=== PATIENT | male | born 1955 | race Caucasian/White ===

== ENCOUNTER 2020-09-04 08:11 | Day surgery (SDC) | payer MEDICARE, BC ==
[2020-09-02 08:39] VITALS: BMI 30.6
[~2020-09-04 08:11] MED LIST: LACTATED RINGERS 1,000 ML IV SCH
[2020-09-04] MEDS ORDERED: LIDOCAINE 1% (10MG/ML) FOR IV START INTRADERMA ONE (08:45)
[2020-09-04] MEDS ORDERED: LACTATED RINGERS 1,000 ML IV ONE (08:45)
[2020-09-04 08:47] VITALS: TEMP 98.2
[2020-09-04] MEDS ORDERED: PROPOFOL 10 MG/ML 20 ML VIAL IV ONE (09:24)
--- NOTE | 2020-09-04 09:27 | P.GSHP ---
History of Present Illness H&P Date: 09/04/20 Chief Complaint: Screening colonoscopy Is a 65-year-old male who presents today for screening colonoscopy. Patient denies any significant GI complaints. Past Medical History Past Medical History: Osteoarthritis (OA) Additional Past Medical History / Comment(s): hx. colon polyps History of Any Multi-Drug Resistant Organisms: None Reported Past Surgical History: Hernia Repair Additional Past Surgical History / Comment(s): colonoscopies, surg. for facial fx near right orbit Past Anesthesia/Blood Transfusion Reactions: No Reported Reaction Smoking Status: Current every day smoker Medications and Allergies Home Medications Medication Instructions Recorded Confirmed Type Ibuprofen 200 - 400 mg PO Q6H PRN 09/02/20 09/02/20 History Allergies Allergy/AdvReac Type Severity Reaction Status Date / Time amoxicillin Allergy Rash/Hives Verified 09/02/20 08:28 Surgical - Exam Vital Signs Temp Pulse Resp BP Pulse Ox 98.2 F 88 16 156/86 95 09/04/20 08:36 09/04/20 08:36 09/04/20 08:36 09/04/20 08:36 09/04/20 08:36 - General well developed, well nourished, no distress - Eyes PERRL - ENT normal pinna - Neck no masses - Respiratory normal expansion - Cardiovascular Rhythm: regular - Abdomen Abdomen: soft, non tender Assessment and Plan Assessment: We'll perform screening colonoscopy
--- NOTE | 2020-09-04 09:44 | P.OP ---
Date of Procedure: 09/04/20 Preoperative Diagnosis: Screening colonoscopy Postoperative Diagnosis: Mild diverticulosis Procedure(s) Performed: Colonoscopy Anesthesia: MAC Surgeon: Navneet Wyatt Pathology: none sent Condition: stable Disposition: PACU Description of Procedure: Patient's placed on the endoscopy table lateral position. He received IV sedation. Digital rectal exam was performed which revealed no abnormalities. The possible colonoscope was then placed patient anus and passed throughout the entire colon. The ileocecal valve was visualized. The cecum, ascending transverse, appeared normal. In the descending; was mild diverticular changes. The scope was then brought back the rectum this appeared normal. Scope withdrawn for patient.
[2020-09-04 10:04] VITALS: PULSE 74
[2020-09-04 10:05] VITALS: BP 141/85; RESP 16
== END 2020-09-04 10:40 | disposition home or self-care (01) ==
LOC: ORWHC2ENDO 08:11
PROVIDERS: ATTEND Surgery
DX: Z12.11 Encounter for screening for malignant neoplasm of colon (principal); K57.30 Diverticulosis of large intestine without perforation or abscess without bleeding; Z86.010 Personal history of colon polyps; F17.200 Nicotine dependence, unspecified, uncomplicated; Z88.0 Allergy status to penicillin; M19.90 Unspecified osteoarthritis, unspecified site
CPT/HCPCS: J2704; G0105; 45378

== ENCOUNTER → 2022-12-16 | Outpatient (CLI) | payer MEDICARE, BC ==
[2022-12-16 16:11] LABS: ALT 22 U/L (10-49); AST 16 U/L (14-35); Chol/HDL Ratio 2.79 Ratio; LDL Cholesterol,Calculated 64.3 mg/dL (0.0-131.0); VLDL Calculation 12.04 mg/dL (5.00-40.00)
== END | disposition home or self-care (01) ==
LOC: LABWHC1 08:09
PROVIDERS: ATTEND Internal Medicine Interventional Cardiology
DX: E78.2 Mixed hyperlipidemia (principal)
CPT/HCPCS: 36415; 80061; 84450; 84460

== ENCOUNTER → 2023-06-30 | Outpatient (CLI) | payer MEDICARE, BC ==
[2023-06-30 11:20] LABS: ALT 24 U/L (10-49); AST 15 U/L (14-35); Albumin 4.6 g/dL (3.8-4.9); Albumin/Globulin Ratio 2.71 Ratio (1.60-3.17); Alkaline Phosphatase 159 U/L (41-126); Blood Urea Nitrogen 13.5 mg/dL (9.0-27.0); Calcium 11.2 mg/dL (8.7-10.3); Chloride 105 mmol/L (96-109); Chol/HDL Ratio 2.91 Ratio; Globulin 1.7 g/dL (1.6-3.3); Glucose 119 mg/dL (70-110); LDL Cholesterol,Calculated 65.8 mg/dL (0.0-131.0); Potassium 5.1 mmol/L (3.5-5.5); Sodium 140 mmol/L (135-145); Total Bilirubin <0.2 mg/dL (0.3-1.2); Total Protein 6.3 g/dL (6.2-8.2); VLDL Calculation 16.22 mg/dL (5.00-40.00)
== END | disposition home or self-care (01) ==
LOC: LABWHC1 07:18
PROVIDERS: ATTEND Internal Medicine Interventional Cardiology
DX: E78.2 Mixed hyperlipidemia (principal)
CPT/HCPCS: 36415; 80053; 80061

== ENCOUNTER 2023-10-16 18:02 | Observation (INO) | payer MEDICARE, BC ==
--- NOTE | 2023-10-16 18:18 | ED ---
General Adult HPI - General Chief complaint: Syncope Stated complaint: Syncope Time Seen by Provider: 10/16/23 18:03 Source: patient, family Mode of arrival: EMS Limitations: no limitations - History of Present Illness Initial comments: Patient presents to the ED by ambulance for evaluation with his and grandson at bedside. Patient states that he just came in after having a cigarette and had a drink of water when he suddenly became "dizzy". Patient then reportedly sustained a syncopal episode. Patient's grandson states that he witnessed the entire episode, and he states that he saw the patient pass out and fall to his right side, then landed on the ground. Grandson states that the patient hit the right side of his head on the wall before falling. Patient's grandson states that the patient's LOC lasted for about 10 seconds before he sp ontaneously regained consciousness. Patient states that he otherwise has felt fine today, and he states that he feels fine currently. Patient denies feeling dizzy or having any symptoms at all currently. Patient denies having any pain, fever or chills, recent illness, headache, focal numbness/weakness/neurodeficit, visual changes, speech difficulty, neck/back/extremity pain, chest pain, dyspnea , cough or cold symptoms, palpitations, abdominal pain, nausea/vomiting/diarrhea, bloody or melanotic stool, dysuria or urinary symptoms, or any other symptoms or complaints. Patient states that he last ate about 20 minutes prior to his syncopal episode today. - Related Data Home Medications Medication Instructions Recorded Confirmed Ibuprofen 400 mg PO BID 09/02/20 10/16/23 Acetaminophen Tab [Tylenol Tab] 1,000 mg PO BID 10/16/23 10/16/23 Aspirin EC [Ecotrin Low Dose] 81 mg PO DAILY 10/16/23 10/16/23 Atorvastatin [Lipitor] 40 mg PO HS 10/16/23 10/16/23 Fluticasone/Umeclidin/Vilanter 1 puff INHALATION RT-DAILY 10/16/23 10/16/23 [Trelestephy Ellipta 100-62.5-25] Allergies Allergy/AdvReac Type Severity Reaction Status Date / Time amoxicillin Allergy Rash/Hives Verified 10/16/23 18:42 Review of Systems ROS Statement: Those systems with pertinent positive or pertinent negative responses have been documented in the HPI. ROS Other: All systems not noted in ROS Statement are negative. Past Medical History Past Medical History: COPD, Osteoarthritis (OA) Additional Past Medical History / Comment(s): hx. colon polyps History of Any Multi-Drug Resistant Organisms: None Reported Past Surgical History: Hernia Repair Additional Past Surgical History / Comment(s): colonoscopies, surg. for facial fx near right orbit Past Anesthesia/Blood Transfusion Reactions: No Reported Reaction Smoking Status: Current every day smoker Past Alcohol Use History: None Reported Past Drug Use History: None Reported General Exam Limitations: no limitations General appearance: alert, in no apparent distress Head exam: Present: atraumatic, normocephalic Eye exam: Present: normal appearance, PERRL, EOMI ENT exam: Present: mucous membranes moist Neck exam: Present: normal inspection, full ROM, other (Trachea is in midline). Absent: tenderness Respiratory exam: Present: normal lung sounds bilaterally. Absent: respiratory distress, wheezes, rales, rhonchi, stridor Cardiovascular Exam: Present: regular rate, normal rhythm, normal heart sounds, other (Normal radial pulses bilaterally) GI/Abdominal exam: Present: soft. Absent: distended, tenderness, guarding Extremities exam: Present: full ROM. Absent: tenderness, pedal edema, calf tenderness Back exam: Present: normal inspection. Absent: tenderness Neurological exam: Present: alert, oriented X3, CN II-XII intact. Absent: motor sensory deficit Psychiatric exam: Present: normal affect Skin exam: Present: warm, dry, intact, normal color Course Vital Signs 10/16/23 18:04 Temperature 97.7 F Pulse Rate 92 Respiratory 18 Rate Blood Pressure 148/82 O2 Sat by Pulse 94 L Oximetry - Reevaluation(s) Reevaluation #1: 10/16/23 20:19 Patient denies development of any new symptoms while in the ED. Patient continues to state that he is asymptomatic. Patient remains alert and breathing comfortably. Patient and family are aware of the patient's test results. Given the patient's syncopal episode today and history of cardiac disease, patient agrees with hospital admission for cardiac monitoring and further evaluation. 10/16/23 20:44 Case, H&P and test results were discussed with Dr. Hughes. She accepts hospital admission. She has no further recommendations at this time. EKG Findings - EKG Comments: EKG Findings:: ED physician interpretation (interpreted by me): Normal sinus rhythm, right bundle branch block, ventricular rate of 85 bpm, normal [place] interval, QRS duration of 148 ms, normal QT interval, LVH, leftward axis, no ST elevation Medical Decision Making - Medical Decision Making Was pt. sent in by a medical professional or institution (, HALI, PAIRER INSPECTOR, urgent care, hospital, or group home...) When possible be specific @ -No Did you speak to anyone other than the patient for history (EMS, parent, family, police, friend...)? What history was obtained from this source @ -History was also provided by the patient's grandson. Did you review nursing and triage notes (agree or disagree)? Why? @ -I reviewed and agree with nursing and triage notes Were old charts reviewed (outside hosp., previous admission, EMS record, old EKG, old radiological studies, urgent care reports/EKG's, group home records)? Report findings @ -No old charts were reviewed Differential Diagnosis (chest pain, altered mental status, abdominal pain women, abdominal pain men, vaginal bleeding, weakness, fever, dyspnea, syncope, headache, dizziness, GI bleed, back pain, seizure, CVA, palpatations, mental health, musculoskeletal)? @ -Differential Syncope: Valvular disease, hypertrophic cardiomyopathy, tamponade, tachycardia, bradycardia, [place], hypovolemia, hemorrhage, anemia, seizure, hypoglycemia, dysrhythmia, this is not meant to be an all-inclusive list. EKG interpreted by me (3pts min.). @ -As above X-rays interpreted by me (1pt min.). @ -Chest x-ray was reviewed myself and shows no acute abnormality. I agree with the radiologist's interpretation as above. CT interpreted by me (1pt min.). @ -None done U/S interpreted by me (1pt. min.). @ -None done What testing was considered but not performed or refused? (CT, X-rays, U/S, labs)? Why? @ -None What meds were considered but not given or refused? Why? @ -None Did you discuss the management of the patient with other professionals (professionals i.e. , HALI, PAIRER INSPECTOR, lab, RT, psych nurse, social media editor, customs and border protection inspector, teacher, chief strategy officer, outsole caser)? Give summary @ -As above. Was smoking cessation discussed for >3mins.? @ -No Was critical care preformed (if so, how long)? @ -No Were there social determinants of health that impacted care today? How? (Homelessness, low income, unemployed, alcoholism, drug addiction, transportation, low edu. Level, literacy, decrease access to med. care, detention, rehab)? @ -No Was there de-escalation of care discussed even if they declined (Discuss DNR or withdrawal of care, Hospice)? DNR status @ -No What co-morbidities impacted this encounter? (DM, HTN, Smoking, COPD, CAD, Cancer, CVA, ARF, Chemo, Hep., AIDS, mental health diagnosis, sleep apnea, morbi d obesity)? @ -None Was patient admitted / discharged? Hospital course, mention meds given and rout e, prescriptions, significant lab abnormalities, going to OR and other pertinent info. @ -Patient reports having a history of some sort of cardiac disease, but he is unable to tell me anything more specific than that. Patient remains in a sinus rhythm on the compliance monitor. Given the patient's syncopal episode and history of cardiac disease, will admit the patient to the hospital for cardiac m onitoring and further evaluation. Patient's troponin within normal limits. The rest of the patient's labs are fairly unremarkable. Dr. Hughes has accepted hospital admission. Patient and family feel comfortable with this plan. Undiagnosed new problem with uncertain prognosis? @ -No Drug Therapy requiring intensive monitoring for toxicity (Heparin, Nitro, Insulin, Cardizem)? @ -No Were any procedures done? @ -No Diagnosis/symptom? @ -Syncope Acute, or Chronic, or Acute on Chronic? @ -Acute Uncomplicated (without systemic symptoms) or Complicated (systemic symptoms)? @ -Default Side effects of treatment? @ -No Exacerbation, Progression, or Severe Exacerbation? @ -No Poses a threat to life or bodily function? How? (Chest pain, [place], NJ, pneumonia, PE, COPD, DKA, ARF, appy, cholecystitis, CVA, Diverticulitis, Homicidal, Suicidal, threat to staff... and all critical care pts) @ -No - Lab Data Result diagrams: 10/16/23 18:37 10/16/23 18:37 Lab Results 10/16/23 10/16/23 10/16/23 Range/Units 18:37 18:37 18:37 WBC 7.6 (3.8-10.6) k/uL RBC 4.11 L (4.30-5.90) m/uL Hgb 14.4 (13.0-17.5) gm/dL Hct 44.5 (39.0-53.0) % MCV 108.3 H (80.0-100.0) fL MCH 35.1 H (25.0-35.0) pg MCHC 32.5 (31.0-37.0) g/dL RDW 14.5 (11.5-15.5) % Plt Count 272 (150-450) k/uL MPV 8.4 Neutrophils % 69 % Lymphocytes % 21 % Monocytes % 6 % Eosinophils % 2 % Basophils % 1 % Neutrophils # 5.2 (1.3-7.7) k/uL Lymphocytes # 1.6 (1.0-4.8) k/uL Monocytes # 0.4 (0-1.0) k/uL Eosinophils # 0.2 (0-0.7) k/uL Basophils # 0.0 (0-0.2) k/uL Manual Slide Review Performed Macrocytosis Marked A Ovalocytes PT 10.2 (10.0-12.5) sec INR 0.9 (<1.2) APTT 25.1 (22.0-30.0) sec Sodium 142 (137-145) mmol/L Potassium 4.5 (3.5-5.1) mmol/L Chloride 112 H (98-107) mmol/L Carbon Dioxide 23 (22-30) mmol/L Anion Gap 7 mmol/L BUN 12 (9-20) mg/dL Creatinine 0.72 (0.66-1.25) mg/dL Est GFR (CKD-EPI)AfAm >90 (>60 ml/min/1.73 sqM) Est GFR (CKD-EPI)NonAf >90 (>60 ml/min/1.73 sqM) Glucose 148 H (74-99) mg/dL Calcium 9.8 (8.4-10.2) mg/dL Magnesium 2.0 (1.6-2.3) mg/dL Total Bilirubin 0.5 (0.2-1.3) mg/dL AST 22 (17-59) U/L ALT 19 (4-49) U/L Alkaline Phosphatase 126 (38-126) U/L Troponin I (0.000-0.034) ng/mL Total Protein 5.7 L (6.3-8.2) g/dL Albumin 3.6 (3.5-5.0) g/dL 10/16/23 Range/Units 18:37 WBC (3.8-10.6) k/uL RBC (4.30-5.90) m/uL Hgb (13.0-17.5) gm/dL Hct (39.0-53.0) % MCV (80.0-100.0) fL MCH (25.0-35.0) pg MCHC (31.0-37.0) g/dL RDW (11.5-15.5) % Plt Count (150-450) k/uL MPV Neutrophils % % Lymphocytes % % Monocytes % % Eosinophils % % Basophils % % Neutrophils # (1.3-7.7) k/uL Lymphocytes # (1.0-4.8) k/uL Monocytes # (0-1.0) k/uL Eosinophils # (0-0.7) k/uL Basophils # (0-0.2) k/uL Manual Slide Review Macrocytosis Ovalocytes PT (10.0-12.5) sec INR (<1.2) APTT (22.0-30.0) sec Sodium (137-145) mmol/L Potassium (3.5-5.1) mmol/L Chloride (98-107) mmol/L Carbon Dioxide (22-30) mmol/L Anion Gap mmol/L BUN (9-20) mg/dL Creatinine (0.66-1.25) mg/dL Est GFR (CKD-EPI)AfAm (>60 ml/min/1.73 sqM) Est GFR (CKD-EPI)NonAf (>60 ml/min/1.73 sqM) Glucose (74-99) mg/dL Calcium (8.4-10.2) mg/dL Magnesium (1.6-2.3) mg/dL Total Bilirubin (0.2-1.3) mg/dL AST (17-59) U/L ALT (4-49) U/L Alkaline Phosphatase (38-126) U/L Troponin I <0.012 (0.000-0.034) ng/mL Total Protein (6.3-8.2) g/dL Albumin (3.5-5.0) g/dL - Radiology Data Chest x-ray: No acute pulmonary process. Disposition Clinical Impression: Syncope Disposition: ADMITTED IP TO THIS HOSP Condition: Stable Is patient prescribed a controlled substance at d/c from ED?: No Referrals: Sidney Doran MD [Primary Care Provider] - 1-2 days Time of Disposition: 20:44
[2023-10-16] MEDS: SODIUM CHLORIDE 0.9% 500 ML 500 ML IV STA (18:36)
[2023-10-16 18:52] LABS: Basophils % (A) 1 %; Eosinophils # (A) 0.2 k/uL (0-0.7); Eosinophils % (A) 2 %; HCT 44.5 % (39.0-53.0); HGB 14.4 gm/dL (13.0-17.5); Lymphocytes # (A) 1.6 k/uL (1.0-4.8); Lymphocytes % (A) 21 %; MCH 35.1 pg (25.0-35.0); MCHC 32.5 g/dL (31.0-37.0); MCV 108.3 fL (80.0-100.0); Macrocytosis Marked; Mean Platelet Volume 8.4; Monocytes # (A) 0.4 k/uL (0-1.0); Monocytes % (A) 6 %; Neutrophils # (A) 5.2 k/uL (1.3-7.7); Neutrophils % (A) 69 %; Platelet Count 272 k/uL (150-450); RBC 4.11 m/uL (4.30-5.90); RDW 14.5 % (11.5-15.5); WBC 7.6 k/uL (3.8-10.6)
[2023-10-16 19:03] LABS: ALT 19 U/L (4-49); AST 22 U/L (17-59); African American GFR (CKD) >90 (>60 ml/min/1.73 sqM); Albumin 3.6 g/dL (3.5-5.0); Alkaline Phosphatase 126 U/L (38-126); Anion Gap 7 mmol/L; Blood Urea Nitrogen 12 mg/dL (9-20); Calcium 9.8 mg/dL (8.4-10.2); Carbon Dioxide 23 mmol/L (22-30); Chloride 112 mmol/L (98-107); Glucose 148 mg/dL (74-99); Non-African American GFR(CKD) >90 (>60 ml/min/1.73 sqM); Potassium 4.5 mmol/L (3.5-5.1); Sodium 142 mmol/L (137-145); Total Bilirubin 0.5 mg/dL (0.2-1.3); Total Protein 5.7 g/dL (6.3-8.2)
[2023-10-16 19:05] LABS: INR 0.9 (<1.2); Partial Thromboplastin Time 25.1 sec (22.0-30.0); Prothrombin Time 10.2 sec (10.0-12.5)
--- NOTE | 2023-10-16 19:16 | XR ---
EXAMINATION TYPE: XR chest 2V DATE OF EXAM: 10/16/2023 COMPARISON: None INDICATION: Syncope TECHNIQUE: Frontal and lateral views of the chest are obtained. FINDINGS: The heart size is normal. The pulmonary vasculature is normal. The lungs are clear. IMPRESSION: 1. No acute pulmonary process.
[2023-10-16] MEDS ORDERED: NALOXONE 0.4 MG/ML 1 ML VIAL IV PRN (20:45)
[2023-10-17 08:52] LABS: HCT 45.5 % (39.6-50.0); MCH 35.3 pg (27.0-32.0); MCV 107.1 FL (80.0-97.0); Mean Platelet Volume 10.4 FL (9.5-12.2); NRBC Per 100 WBC 0 X 10*3/uL (0.00-0.01); Platelet Count 249 X 10*3/uL (140-440); RBC 4.25 X 10*6/uL (4.40-5.60); RDW 15.1 % (11.5-14.5)
[2023-10-17 08:56] LABS: ALT 17 U/L (10-49); AST 18 U/L (14-35); Albumin 4.1 g/dL (3.8-4.9); Albumin/Globulin Ratio 2.93 Ratio (1.60-3.17); Alkaline Phosphatase 129 U/L (41-126); Calcium 10.3 mg/dL (8.7-10.3); Carbon Dioxide 24.8 mmol/L (21.6-31.8); Chloride 111 mmol/L (96-109); Globulin 1.4 g/dL (1.6-3.3); Glucose 104 mg/dL (70-110); Sodium 143 mmol/L (135-145); Total Bilirubin 0.4 mg/dL (0.3-1.2); Total Protein 5.5 g/dL (6.2-8.2)
[2023-10-17 11:14] LABS: Basophils # (A) 0.04 X 10*3/uL (0.00-0.10); Basophils % (A) 0.5 %; Eosinophils # (A) 0.14 X 10*3/uL (0.04-0.35); Eosinophils % (A) 1.9 %; Lymphocytes # (A) 1.43 X 10*3/uL (0.90-5.00); Lymphocytes % (A) 19.6 %; Macrocytosis (M) 2+; Monocytes # (A) 0.52 X 10*3/uL (0.20-1.00); Monocytes % (A) 7.1 %; Neutrophils # (A) 5.12 X 10*3/uL (1.80-7.70); Neutrophils % (A) 70.2 %
[2023-10-17] MEDS: ASPIRIN 81 MG PO SCH (16:42)
--- NOTE | 2023-10-17 16:59 | CT ---
EXAMINATION TYPE: CT brain wo con CT DLP: 1138.07 mGycm, Automated exposure control for dose reduction was used. DATE OF EXAM: 10/17/2023 4:39 PM COMPARISON: None. CLINICAL INDICATION:Male, 68 years old with history of syncope, syncope TECHNIQUE: Brain: Axial CT images of the brain were obtained with coronal and sagittal reformats created and rev iewed. Contrast used: None. Oral contrast used: None. FINDINGS: Brain: Extra-axial spaces: No abnormal extra-axial fluid collections. Ventricular system: Within normal limits Cerebral parenchyma: No acute intraparenchymal hemorrhage or mass effect. The mccabe-white junction is well differentiated. Cerebellum: Unremarkable. Mass effect: No evidence of midline shift. Intracranial vasculature: Atherosclerotic calcifications of the intracranial vessels. Soft tissues: Normal. Calvarium/osseous structures: No depressed skull fracture.. I'll disease with remote right maxillary injury. Paranasal sinuses and mastoid air cells: Mild scattered paranasal sinus disease. Visualized orbits: Orbital contents are intact. IMPRESSION: No acute intracranial process.
[2023-10-17 18:47] LABS: Appearance,Urine Clear (Clear); Bilirubin,Urine Negative (Negative); Blood,Urine Negative (Negative); Color,Urine Colorless; Glucose,Urine (UA) Negative (Negative); Ketones,Urine Negative (Negative); Leukocyte Esterase,Urine Negative (Negative); Nitrite,Urine Negative (Negative); PH, Urine 7.5 (5.0-8.0); Protein,Urine Negative (Negative); Urobilinogen,Urine <2.0 mg/dL (<2.0)
--- NOTE | 2023-10-17 20:47 | US ---
EXAMINATION TYPE: US carotid duplex BILAT DATE OF EXAM: 10/17/2023 COMPARISON: NONE CLINICAL INDICATION: Male, 68 years old with history of stroke; stroke TECHNIQUE: Carotid duplex ultrasound examination. Indirect Doppler criteria was utilized. FINDINGS: EXAM MEASUREMENTS: RIGHT: Peak Systolic Velocity (PSV) cm/sec ----- Right CCA: 66.5 ----- Right ICA: 65.8 ----- Right ECA: 107 ICA/CCA ratio: 0.99 RIGHT: End Diastole cm/sec ----- Right CCA: 26.1 ----- Right ICA: 27.7 ----- Right ECA: 23.1 LEFT: Peak Systolic Velocity (PSV) cm/sec ----- Left CCA: 80.8 ----- Left ICA: 134 ----- Left ECA: 92.1 ICA/CCA ratio: 1.6 LEFT: End Diastole cm/sec ----- Left CCA: 20.8 ----- Left ICA: 49.3 ----- Left ECA: 12.5 VERTEBRALS (direction of flow): Right Vertebral: Antegrade Left Vertebral: Antegrade Rhythm: Normal ROOFER GYPSUM NOTES: Plaque seen in bilateral bulbs. Left prox ICA velocity is slightly elevated. IMPRESSION: 1. 50-69% stenosis of the left carotid bifurcation by peak systolic velocity. 2. Less than 50% stenosis of the right carotid bifurcations. Criteria for Assigning % of Stenosis / Diameter reduction (Estimation based on the indirect measurements of the internal carotid artery velocities (ICA PSV). 1. Normal (no stenosis)=ICA PSV < 125 cm/s: ratio < 2.0: ICA EDV<40 cm/s. 2. Less than 50% stenosis=ICA PSV < 125 cm/s: ratio < 2.0: ICA EDV<40 cm/s. 3. 50 to 69% stenosis=ICA PSV of 125 to 230 cm/s: ration 2.0 ? 4.0: ICA EDV 40-100 cm/s. 4. Greater than 70% stenosis to near occlusion= ICA PSV > 230 cm/s: ratio > 4.0: ICA EDV > 100 cm/s. 5. Near occlusion= ICA PSV velocities may be low or undetectable: variable ratio and ICA EDV. 6. Total occlusion=unable to detect flow.
[2023-10-17] MEDS: ATORVASTATIN 40 MG TAB PO SCH (20:53)
[2023-10-17] MEDS: ACETAMINOPHEN TAB 500 MG TAB PO SCH (20:54)
[2023-10-17] MEDS: IBUPROFEN 400 MG TAB PO SCH (20:54)
--- NOTE | 2023-10-18 01:36 | HP ---
HISTORY AND PHYSICAL CHIEF COMPLAINT: Syncope. HISTORY OF PRESENT ILLNESS: This is a 68-year-old gentleman with a past medical history of DJD, COPD, was complaining of syncope. The patient felt suddenly dizzy and had a syncopal episode. There are no history of any fever, rigors, or chills. No history of headache or loss of consciousness. The loss of consciousness lasted about 10 seconds only. The patient will be ordered a complete syncope workup at this time. PAST MEDICAL HISTORY: COPD, DJD. HOME MEDICATIONS: Lipitor. Dose and rest of medications noted. ALLERGIES: Amoxicillin. FAMILY HISTORY: No history of heart disease or strokes in the family. SOCIAL HISTORY: History of smoking. REVIEW OF SYSTEMS: Fourteen-point review is negative except as mentioned earlier. PHYSICAL EXAMINATION: VITAL SIGNS: Pulse 74, blood pressure 137/84. No orthostatic changes. Respirations 16. CHEST: Clear to auscultation. CARDIOVASCULAR: S1, S2. ABDOMEN: Soft. NERVOUS SYSTEM: Nonfocal. SKIN: No ulcer, rash, bleeding. JOINTS: No active deforming arthropathy. LABORATORY DATA: Reviewed. ASSESSMENT: 1. Syncope for evaluation, rule out cardiac syncope or transient ischemic attack. 2. Chronic obstructive pulmonary disease. 3. Degenerative joint disease. 4. Continued ongoing nicotine dependence. RECOMMENDATIONS AND DISCUSSION: This is a 68-year-old gentleman who presented with multiple complex medical issues. We will monitor the patient closely. I would recommend CT scan of the brain, 2D echo, carotid ultrasound, Cardiology and Neurology consultations. Resume the home medications. Repeat serum lipid levels. Repeat labs. Prognosis guarded because of multiple complex medical issues and further recommendations to follow. Thank you. See orders for details. MMODL / IJN: [id number] /
[2023-10-18] MEDS: SYMBICORT 80-4.5 MCG INHALER INHALATION SCH (09:09)
[2023-10-18] MEDS: IPRATROPIUM 0.5 MG/2.5 ML NEBU INHALATION SCH (09:09)
--- NOTE | 2023-10-18 10:09 | CA ---
Transthoracic Echo Report Name: Sergio Quigley Age: 68 Gender: M : 1955 Exam Date: 10/17/2023 15:26 Exam Location: [facility] Ht (in): 72 Wt (lb): 215 Ordering Physician: Jimenez Laureano MD Attending/Referring Phys: Hvac Engineer Haritha Tellez Procedure CPT: Indications: stroke Cardiac Hx: Technical Quality: Very technically difficult study Contrast 1: Definity Total Dose (mL): 2 Contrast 2: Total Dose (mL): MEASUREMENTS (Male / Female) Normal Values 2D ECHO LV Diastolic Diameter PLAX 4.5 cm 4.2 - 5.9 / 3.9 - 5.3 cm LV Systolic Diameter PLAX 3.5 cm IVS Diastolic Thickness 1.2 cm 0.6 - 1.0 / 0.6 - 0.9 cm LVPW Diastolic Thickness 1.2 cm 0.6 - 1.0 / 0.6 - 0.9 cm LV Relative Wall Thickness 0.5 LVOT Diameter 2.3 cm Aortic Root Diameter 3.9 cm LA Systolic Diameter LX 3.2 cm 3.0 - 4.0 / 2.7 - 3.8 cm DOPPLER AV Peak Velocity 114.6 cm/s AV Peak Gradient 5.3 mmHg AV Mean Velocity 89.8 cm/s AV Mean Gradient 3.4 mmHg AV Velocity Time Integral 21.1 cm LVOT Peak Velocity 64.9 cm/s LVOT Peak Gradient 1.7 mmHg LVOT Velocity Time Integral 15.6 cm LVOT Stroke Volume 63.0 cm??? LVOT Stroke Volume Index 28.7 ml/m??? LVOT Cardiac Index 2020.1 cm???/min???m??? AV Area Cont Eq vti 3.0 cm??? AV Area Cont Eq pk 2.3 cm??? Mitral E Point Velocity 52.9 cm/s Mitral A Point Velocity 67.0 cm/s Mitral E to A Ratio 0.8 MV Deceleration Time 293.5 ms PV Peak Velocity 64.6 cm/s PV Peak Gradient 1.7 mmHg FINDINGS Left Ventricle Left ventricular ejection fraction is estimated at 50-55%. Normal left ventricular systolic function with no obvious regional wall motion abnormalities. Right Ventricle Normal right ventricular size. Right Atrium Normal right atrial size. Left Atrium Normal left atrial size. Mitral Valve Trace mitral regurgitation. Aortic Valve No aortic valve stenosis or regurgitation. Tricuspid Valve No tricuspid regurgitation. Pulmonic Valve No pulmonic regurgitation. Pericardium No pericardial effusion. Prominent epicardial fat. Aorta Normal size aortic root and proximal ascending aorta. CONCLUSIONS Suboptimal images due to poor acoustic windows, limited study. Left ventricular ejection fraction 50-55% Mild increased left ventricular wall thickness Trace mitral regurgitation No pericardial effusion Previewed by: Dr. Glenn Monroe DO (Electronically Signed) Final Date: 18 October 2023 10:08
[2023-10-18 11:05] LABS: Basophils # (A) 0.02 X 10*3/uL (0.00-0.10); Basophils % (A) 0.3 %; Eosinophils % (A) 1.4 %; HCT 47.5 % (39.6-50.0); HGB 15.5 g/dL (13.0-17.0); Lymphocytes # (A) 1.31 X 10*3/uL (0.90-5.00); Lymphocytes % (A) 18.1 %; MCH 34.8 pg (27.0-32.0); MCHC 32.6 g/dL (32.0-37.0); MCV 106.5 FL (80.0-97.0); Mean Platelet Volume 10.5 FL (9.5-12.2); Monocytes # (A) 0.59 X 10*3/uL (0.20-1.00); Monocytes % (A) 8.2 %; NRBC Per 100 WBC 0 X 10*3/uL (0.00-0.01); Neutrophils # (A) 5.17 X 10*3/uL (1.80-7.70); Neutrophils % (A) 71.6 %; Platelet Count 262 X 10*3/uL (140-440); RBC 4.46 X 10*6/uL (4.40-5.60); WBC 7.22 X 10*3/uL (4.50-10.00)
[2023-10-18 11:19] LABS: BUN/Creat Ratio 12.78 Ratio (12.00-20.00); Blood Urea Nitrogen 11.5 mg/dL (9.0-27.0); Calcium 10.6 mg/dL (8.7-10.3); Carbon Dioxide 26.5 mmol/L (21.6-31.8); Chloride 104 mmol/L (96-109); Chol/HDL Ratio 3.64 Ratio; Glucose 89 mg/dL (70-110); LDL Cholesterol,Calculated 59.9 mg/dL (0.0-131.0); Sodium 140 mmol/L (135-145)
--- NOTE | 2023-10-18 11:46 | P.CNNES ---
History of Present Illness Consult date: 10/18/23 Requesting physician: Delmy Salgado Reason for Consult: Syncope History of Present Illness: Patient is a 68-year-old right-handed male was brought to the hospital by ambulance 2 days ago, 10/16/2023 at 6:02 PM for a syncopal spell. Patient states that he was walking in the kitchen to get a drink of water, when he suddenly felt dizzy, felt wobbly, he turned back to go back to the living room, but passed out. He was out for about only 10 to 15 seconds, as when he came to, he saw all family members around him. Patient states that he felt dizzy for only about couple seconds before he passed out. There was no postictal confusion. No convulsive activity noticed, no tongue bite or loss of control of urine. Never had episode of dizziness. No previous history of strokes or seizures. Patient denies any slurred speech, visual problem, any numbness tingling focal weakness, headache, chest pain shortness of breath, nausea vomiting diarrhea, or anxiety or depression. His hearing as well. As per EMS flowsheet, when they arrived at the patient's home, patient was sitting up on the couch. He was alert and oriented x 4 and communicates clearly. He said that he got up to get a glass of water and after taking a few steps, he felt dizzy and woke up on the floor. This was witnessed by family in the same room who states that patient was awake before they got to him. He did hit his head on the cabinetry but no obvious injury. He was able to get up and walk back to the couch without symptoms. He states that he had no symptoms before getting dizzy. He ate supper about 30 minutes prior. Patient does have cardiac and COPD history and takes aspirin 81 mg. Vitals at the scene was blood pressure 165/86, pulse rate 92, respirations 15, saturation 96%. Vital signs on arrival blood pressure 148/82, pulse rate 92 temperature 97.8. Patient had orthostatics checked yesterday morning at 7:25 AM. Supine blood pressure 130/72, with pulse rate 71, sitting 137/84 with pulse of 74 and standing 140/82 and pulse of 80. Overall orthostatics negative. Blood test shows normal CBC, but elevated MCV 108.3. PT PTT normal. Electrolytes, renal functions are normal. Troponin negative. UA negative. EKG showed ectopic atrial rhythm. Left axis deviation. Chest x-ray showed no acute process. CT head revealed no acute process. I personally reviewed CT head, agree with the findings. Patient has history of smoking 1 pack/day for 55 years, still smokes. He does not drink at all. Denies diabetes. Review of Systems As mentioned in detail in HPI. All other review of systems unremarkable. Past Medical History Past Medical History: COPD, Osteoarthritis (OA) Additional Past Medical History / Comment(s): hx. colon polyps History of Any Multi-Drug Resistant Organisms: None Reported Past Surgical History: Hernia Repair Additional Past Surgical History / Comment(s): colonoscopies, surg. for facial fx near right orbit Past Anesthesia/Blood Transfusion Reactions: No Reported Reaction Smoking Status: Current every day smoker Past Alcohol Use History: None Reported Additional Past Alcohol Use History / Comment(s): >1/2ppd for 45 yrs. Past Drug Use History: None Reported Medications and Allergies Home Medications Medication Instructions Recorded Confirmed Type Ibuprofen 400 mg PO BID 09/02/20 10/16/23 History Acetaminophen Tab [Tylenol] 1,000 mg PO BID 10/16/23 10/16/23 History Aspirin EC [Ecotrin Low Dose] 81 mg PO DAILY 10/16/23 10/16/23 History Atorvastatin [Lipitor] 40 mg PO HS 10/16/23 10/16/23 History Fluticasone/Umeclidin/Vilanter 1 puff INHALATION RT-DAILY 10/16/23 10/16/23 History [Trelestephy Ellipta 100-62.5-25] Allergies Allergy/AdvReac Type Severity Reaction Status Date / Time amoxicillin Allergy Rash/Hives Verified 10/16/23 18:42 Physical Examination - Vital Signs Vital Signs: Vital Signs Temp Pulse Pulse Pulse Resp BP BP 10/18/23 09:24 80 10/18/23 09:10 80 10/18/23 07:00 98.3 F 76 16 121/79 10/18/23 02:00 86 10/18/23 01:11 98.4 F 86 16 107/75 10/17/23 20:53 80 10/17/23 19:03 98.3 F 64 16 130/77 10/17/23 16:49 98.3 F 64 16 132/80 Pulse Ox 04/02/24 09:24 10/18/23 09:10 10/18/23 07:00 94 L 10/18/23 02:00 10/18/23 01:11 98 10/17/23 20:53 10/17/23 19:03 95 10/17/23 16:49 96 Intake and Output 10/17/23 10/18/23 10/18/23 22:59 06:59 14:59 Intake Total 480 Balance 480 Intake: Oral 480 Other: # Voids 2 1 Patient is an elderly male, very pleasant, in no acute distress. Patient is alert awake oriented to time place and person. Speech and language functions are normal. Patient can name and repeat very well. No aphasia or dysarthria. Attention, concentration and fund of knowledge is adequate. On cranial nerve examination, pupils are equal, round and reacting to light, visual osorio are full on confrontation, with no neglect on double simultaneous stimulation. Extraocular muscles are intact with no nystagmus. Face is symmetric, tongue protrudes to the midline. Palatal elevation and sensation normal, hearing and shoulder shrug normal, facial sensation normal. On muscle strength testing, there is no pronator drift and the strength is normal in arms and legs distally and proximally. Deep tendon reflexes are symmetric 2 at the biceps, 2 brachioradialis, 2 at the knees, 1 ankles and plantars downgoing bilaterally. Sensory to touch is equal with no neglect on double simultaneous stimulation. Cerebellar function showed no ataxia for [id number] testing. No dysdiadochokinesia. No ataxia for [id number] testing on either side. Tone and bulk of muscles normal. Gait deferred.. On general examination, there is no carotid bruit or murmur, S1-S2 audible. Chest is clear on consultation. Abdomen is soft nontender. No organomegaly, bowel sounds present. Peripheral pulses are present. No peripheral edema. Results - Laboratory Findings CBC and BMP: 10/18/23 06:23 10/18/23 06:23 Abnormal Lab Findings: Abnormal Labs 10/16/23 10/16/23 10/17/23 18:37 18:37 05:58 RBC 4.11 L 4.25 L MCV 108.3 H 107.1 H MCH 35.1 H 35.3 H RDW 15.1 H Immature Gran # 0.05 H Macrocytosis Marked A Macrocytosis (manual) 2+ A Chloride 112 H Glucose 148 H Alkaline Phosphatase Total Protein 5.7 L Globulin 10/17/23 05:58 RBC MCV MCH RDW Immature Gran # Macrocytosis Macrocytosis (manual) Chloride 111 H Glucose Alkaline Phosphatase 129 H Total Protein 5.5 L Globulin 1.4 L Assessment and Plan Assessment: * Syncopal episode with prior brief episode of dizziness for a couple seconds. Patient was out for only 10 or 15 seconds with no postictal confusion. No convulsive activity noted with the event. Rule out arrhythmia. Orthostatics negative. * Hypertension * Tobacco use * Macrocytosis, unclear cause. Patient denies alcoholism Plan: * Neurologically, no other workup indicated. * Cardiology has seen the patient, and agree with checking event monitor to rule out any arrhythmia. * Carotid Doppler revealed 50 to 69% stenosis of the left carotid bifurcation. Less than 50% stenosis of the right carotid bifurcation. Antegrade flow in both vertebral arteries. Recommend patient follow-up carotid Doppler in 6 months. * 2D echo revealed normal left ventricular systolic function with EF 50 to 55%. No obvious regional wall motion abnormalities. Mildly increased left ventricular wall thickness. Normal left atrial size. * Orthostatics checked are negative. * Telemetry monitoring * Continue aspirin and Lipitor. * Strongly recommend complete tobacco cessation. * B12, folate for macrocytosis. * Neurologically clear. Thank you for the consult. Addendum (10/19/2023): Patient's B12 is slightly low 298, folate 15.20. Patient has been discharged. I called patient's home, spoke to patient's , informed about low B12. Recommended him either undergo monthly B12 injections, or try vitamin B12 1000 mcg sublingually daily. She will relay it to her .
--- NOTE | 2023-10-18 12:58 | P.CRDCN ---
History of Present Illness Consult date: 10/18/23 Consult reason: sycope History of present illness: History of present illness: This is a 68-year-old male patient of Dr. Holland with past medical history of coronary artery disease documented by calcium score CT scan, dyslipidemia, tobacco use. We have been asked to evaluate the patient for syncope. Patient gives history that on he was in the kitchen he had just come in from smoking a cigarette and had just eaten about 20 minutes prior to that and had a syncopal episode in the kitchen. He denies having any lightheadedness or dizziness. No palpitations. He states he is feeling well now with no symptoms at all. He has never had a syncopal episode before. EKG sinus rhythm with right bundle branch block Chest x-ray: No acute process Carotid duplex: 50-69% stenosis of the left carotid bifurcation by peak systolic velocity. Less than 50% stenosis of the right carotid bifurcations. CT of the brain no acute intracranial process. Echocardiogram performed on 10/17/2023 reveals suboptimal images due to poor acoustic windows limited study. Left ventricular EF 50 to 55%. Mild increased left ventricular wall thickness. Trace mitral regurgitation. No pericardial effusion. WBC 7.3, hemoglobin 15, platelet count 249. D-dimer 0.2. INR 0.9. Sodium 143, potassium 5, BUN 10, creatinine 0.8. Alkaline phosphatase 129 otherwise liver function tests are within normal limits. Troponin negative x 2. Urinalysis negative. Home cardiac medications: Aspirin 81 mg daily, atorvastatin 40 mg at bedtime. Cardiolite stress test performed 12/23/2022 revealed average exercise tolerance with nondiagnostic electrocardiographic stress testing secondary to baseline EKG abnormalities. Normal myocardial perfusion imaging with fixed inferior wall defect and normal gated SPECT images. Findings consistent with soft tissue attenuation. No evidence of stress-induced ischemia. Echocardiogram performed in the office on 12/30/2022 revealed EF of 55 to 60%, mild left ventricular hypertrophy. Mild mitral regurgitation and mild tricuspid regurgitation. Cardiac calcium score performed on 10/06/2022 with total 477: LMCA 0, LAD 326, left circumflex 4, RCA 147. Review Of Systems: At the time of my exam: CONSTITUTIONAL: Denies fever or chills. HEENT: Denies blurred vision, vision changes, or eye pain. Denies hemoptysis CARDIOVASCULAR: Denies chest pain. Denies orthopnea. Denies PND. Denies palpitations RESPIRATORY: Denies shortness of breath. GASTROINTESTINAL: Denies abdominal pain. Denies nausea or vomiting. HEMATOLOGIC: Denies bleeding disorders. GENITOURINARY: Denies any blood in urine. SKIN: Denies pruitis. Denies rash. Physical examination: Gen: This is a 68-year-old male in no acute distress VS: reviewed blood pressure 121/79, heart rate 76, pulse ox 94% on room air. HEENT: Head is atraumatic, normocephalic. Pupils equal, round. Sclerae is anicteric. NECK: Supple. No JVD. LUNGS: Clear to auscultation. No wheezes or rhonchi. No intercostal retractions. HEART: Regular rate and rhythm. No murmur. ABDOMEN: Soft No tenderness. EXTREMITIES: No pedal edema. No calf tenderness. NEUROLOGICAL: Patient is awake, alert and oriented x3. Assessment: Syncopal episode rule out cardiac etiology Coronary artery disease documented by calcium score CT with normal Cardiolite stress test Dyslipidemia Tobacco use and dependence Plan: Resume patient's home cardiac medications 30-day event monitor to rule out arrhythmia Smoking cessation Patient is cleared for discharge from cardiology and may follow-up in the office with Dr. Holland in 4 weeks. Thank you kindly for this consultation. Nurse practitioner note has been reviewed, I agree with documented findings and plan of care. Patient was seen and examined. Past Medical History Past Medical History: COPD, Osteoarthritis (OA) Additional Past Medical History / Comment(s): hx. colon polyps History of Any Multi-Drug Resistant Organisms: None Reported Past Surgical History: Hernia Repair Additional Past Surgical History / Comment(s): colonoscopies, surg. for facial fx near right orbit Past Anesthesia/Blood Transfusion Reactions: No Reported Reaction Smoking Status: Current every day smoker Past Alcohol Use History: None Reported Additional Past Alcohol Use History / Comment(s): >1/2ppd for 45 yrs. Past Drug Use History: None Reported Medications and Allergies Home Medications Medication Instructions Recorded Confirmed Type Ibuprofen 400 mg PO BID 09/02/20 10/16/23 History Acetaminophen Tab [Tylenol Tab] 1,000 mg PO BID 10/16/23 10/16/23 History Aspirin EC [Ecotrin Low Dose] 81 mg PO DAILY 10/16/23 10/16/23 History Atorvastatin [Lipitor] 40 mg PO HS 10/16/23 10/16/23 History Fluticasone/Umeclidin/Vilanter 1 puff INHALATION RT-DAILY 10/16/23 10/16/23 History [Trelegy Ellipta 100-62.5-25] Allergies Allergy/AdvReac Type Severity Reaction Status Date / Time amoxicillin Allergy Rash/Hives Verified 10/16/23 18:42 Physical Exam Vitals: Vital Signs Temp Pulse Pulse Resp BP Pulse Ox 10/18/23 02:00 86 10/18/23 01:11 98.4 F 86 16 107/75 98 10/17/23 20:53 80 10/17/23 19:03 98.3 F 64 16 130/77 95 10/17/23 16:49 98.3 F 64 16 132/80 96 Intake and Output 10/17/23 10/18/23 10/18/23 22:59 06:59 14:59 Intake Total 480 Balance 480 Intake: Oral 480 Other: # Voids 2 1 Results 10/18/23 06:23 10/18/23 06:23 Cardiac Enzymes 10/17/23 Range/Units 05:58 AST 18 (14-35) U/L CBC 10/17/23 Range/Units 05:58 WBC 7.30 (4.50-10.00) X 10*3/uL RBC 4.25 L (4.40-5.60) X 10*6/uL Hgb 15.0 (13.0-17.0) g/dL Hct 45.5 (39.6-50.0) % Plt Count 249 (140-440) X 10*3/uL Comprehensive Metabolic Panel 10/17/23 Range/Units 05:58 Sodium 143 (135-145) mmol/L Potassium 5.0 (3.5-5.5) mmol/L Chloride 111 H (96-109) mmol/L Carbon Dioxide 24.8 (21.6-31.8) mmol/L BUN 10.0 (9.0-27.0) mg/dL Creatinine 0.8 (0.6-1.5) mg/dL Glucose 104 (70-110) mg/dL Calcium 10.3 (8.7-10.3) mg/dL AST 18 (14-35) U/L ALT 17 (10-49) U/L Alkaline Phosphatase 129 H (41-126) U/L Total Protein 5.5 L (6.2-8.2) g/dL Albumin 4.1 (3.8-4.9) g/dL Current Medications Generic Name Dose Route Start Last Admin Trade Name Freq PRN Reason Stop Dose Admin Acetaminophen 1,000 mg 10/17/23 21:00 10/17/23 20:54 Acetaminophen Tab 500 Mg Tab PO Not Given BID ANA Aspirin 81 mg 10/17/23 15:00 10/17/23 16:42 Aspirin 81 Mg PO 81 mg DAILY ANA Administration Atorvastatin Calcium 40 mg 10/17/23 21:00 10/17/23 20:53 Atorvastatin 40 Mg Tab PO 40 mg HS ANA Administration Budesonide/Formoterol Fumarate 2 puff 10/18/23 08:00 Symbicort 80-4.5 Mcg Inhaler INHALATION RT-BID ANA Ibuprofen 400 mg 10/17/23 21:00 10/17/23 20:54 Ibuprofen 400 Mg Tab PO Not Given BID ANA Ipratropium [place] 0.5 mg 10/18/23 08:00 Ipratropium 0.5 Mg/2.5 Ml Nebu INHALATION RT-QID ANA Naloxone HCl 0.2 mg 10/16/23 20:45 Naloxone 0.4 Mg/Ml 1 Ml Vial IV Q2M PRN Opioid Reversal Intake and Output 10/17/23 10/18/23 10/18/23 22:59 06:59 14:59 Intake Total 480 Balance 480 Intake: Oral 480 Other: # Voids 2 1 10/17/23 05:58 10/17/23 05:58
[2023-10-18 13:40] VITALS: BP 133/81; PULSE 82; RESP 17; TEMP 98.4
--- NOTE | 2023-10-21 23:46 | P.DS ---
Providers Date of admission: 10/16/23 20:45 Attending physician: Sidney Doran Consults: 10/17/23 14:47 Consult Physician Urgent Consulting Provider: July Kruger Consult Reason/Comments: syncope, tia?? Do you want consulting provider notified?: Yes Consult Physician Urgent Consulting Provider: Noe Stuart Consult Reason/Comments: syncope Do you want consulting provider notified?: Yes Primary care physician: Sidney Doran Hospital Course: Final Diagnosis Syncopal episode with prior brief episode of dizziness for a couple seconds. Hypertension Tobacco use Dyslipidemia Coronary artery disease Discharge Disposition Patient is medically clear for discharge home. 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 Holland on discharge. Hospital Course Patient is a 68-year-old right-handed male with medical history of coronary artery disease documented by calcium score CT scan, dyslipidemia, tobacco use. Was brought to the hospital by ambulance after a syncopal spell. Patient states that he was walking in the kitchen to get a drink of water, when he suddenly felt dizzy, felt wobbly, he turned back to go back to the living room, but pa ssed out. He was out for about only 10 to 15 seconds, as when he came to, he saw all family members around him. Patient states that he felt dizzy for only about couple seconds before he passed out. He was smoking a cigarette and had eaten just 20 minutes prior. There was no postictal confusion. No convulsive activity noticed, no tongue bite or loss of control of urine. Never had episode of dizziness. No previous history of strokes or seizures. Patient denies any slurred speech, visual problem, any numbness tingling focal weakness, headache, chest pain shortness of breath, nausea vomiting diarrhea, or anxiety or depression. His hearing as well. CT head revealed no acute process. Patinet has normal CBC, but elevated MCV 108.3. PT PTT normal. Electrolytes, renal functions are normal. Troponin negative. UA negative. EKG showed ectopic atrial rhythm. Left axis deviation. Chest x-ray showed no acute process. Admitted to the hospital with cardiology and neurology consultation. O rthostatics were negative. Cardiology recommending a 30 day event monitor and follow up in the cardiology office in 4 weeks. Please see medication reconciliation for a list of current medications. Thank you for allowing us to participate in the care of this patient. The impression and plan of care has been dictated by Obdulia Villanueva, Nurse Practitioner as directed. Dr. Tia MD I have performed a history and physical examination and medical decision making of this patient, discussed the same with the dictator, and agree with the dictators assessment and plan as written, documented as a scribe. Based on total visit time, I have performed more than 50% of this visit. Patient Condition at Discharge: Stable Plan - Discharge Summary Discharge Rx Participant: No New Discharge Prescriptions: Continue Ibuprofen 400 mg PO BID Atorvastatin [Lipitor] 40 mg PO HS Aspirin EC [Ecotrin Low Dose] 81 mg PO DAILY Fluticasone/Umeclidin/Vilanter [Trelegy Ellipta 100-62.5-25] 1 puff INHALATION RT-DAILY Acetaminophen Tab [Tylenol] 1,000 mg PO BID Discharge Medication List Ibuprofen 400 mg PO BID 09/02/20 [History] Acetaminophen Tab [Tylenol] 1,000 mg PO BID 10/16/23 [History] Aspirin EC [Ecotrin Low Dose] 81 mg PO DAILY 10/16/23 [History] Atorvastatin [Lipitor] 40 mg PO HS 10/16/23 [History] Fluticasone/Umeclidin/Vilanter [Trelegy Ellipta 100-62.5-25] 1 puff INHALATION RT-DAILY 10/16/23 [History] Follow up Appointment(s)/Referral(s): Louann Holland MD [STAFF PHYSICIAN] - 11/23/23 1:45 pm (4-5 weeks) Sidney Doran MD [Primary Care Provider] - 1-2 days Patient Instructions/Handouts: Syncope (GEN) Activity/Diet/Wound Care/Special Instructions: Follow up at cardiology Discharge Disposition: HOME SELF-CARE
== END 2023-10-18 15:10 | disposition home or self-care (01) ==
LOC: EC 18:02 → 6NMEDSUR 20:45
PROVIDERS: ADMIT Family Medicine; ATTEND Family Medicine
DX: R55 Syncope and collapse (principal); J44.9 Chronic obstructive pulmonary disease, unspecified; M19.90 Unspecified osteoarthritis, unspecified site; I45.10 Unspecified right bundle-branch block; I25.10 Atherosclerotic heart disease of native coronary artery without angina pectoris; E78.5 Hyperlipidemia, unspecified; F17.210 Nicotine dependence, cigarettes, uncomplicated; I08.1 Rheumatic disorders of both mitral and tricuspid valves; I10 Essential (primary) hypertension; D75.89 Other specified diseases of blood and blood-forming organs; I65.23 Occlusion and stenosis of bilateral carotid arteries; Z79.899 Other long term (current) drug therapy; Z79.82 Long term (current) use of aspirin
CPT/HCPCS: 96360; 96361 ×2; 99285; 36415; 94640 ×2; 93005; 93270; 85379; 80061; 80053 ×2; 80048; 82607; 82746; 83735; 84484 ×2; 85025 ×3; 85610; 85730; 81003; 71046; 93880; 70450; G0378 ×3; C8929; 93306

== ENCOUNTER → 2024-03-21 | Outpatient (CLI) | payer MEDICARE, BC ==
[2024-03-21 15:51] LABS: Chol/HDL Ratio 2.67 Ratio; LDL Cholesterol,Calculated 57.7 mg/dL (0.0-131.0); VLDL Calculation 14.34 mg/dL (5.00-40.00)
[2024-03-21 15:52] LABS: ALT 19 U/L (10-49); AST 13 U/L (14-35)
== END | disposition home or self-care (01) ==
LOC: LABWHC1 07:13
PROVIDERS: ATTEND Internal Medicine Interventional Cardiology
DX: E78.2 Mixed hyperlipidemia (principal)
CPT/HCPCS: 36415; 80061; 84450; 84460

== ENCOUNTER → 2024-09-19 | Outpatient (CLI) | payer MEDICARE, BC ==
[2024-09-19 10:49] LABS: ALT 18 U/L (10-49); AST 15 U/L (14-35); Albumin 4.3 g/dL (3.8-4.9); Albumin/Globulin Ratio 2.15 Ratio (1.60-3.17); Alkaline Phosphatase 165 U/L (41-126); BUN/Creat Ratio 15.33 Ratio (12.00-20.00); Blood Urea Nitrogen 13.8 mg/dL (9.0-27.0); Calcium 10.9 mg/dL (8.7-10.3); Chloride 107 mmol/L (96-109); Chol/HDL Ratio 2.75 Ratio; Glucose 100 mg/dL (70-110); LDL Cholesterol,Calculated 63.4 mg/dL (0.0-131.0); Potassium 4.8 mmol/L (3.5-5.5); Sodium 141 mmol/L (135-145); Total Bilirubin 0.3 mg/dL (0.3-1.2); Total Protein 6.3 g/dL (6.2-8.2); VLDL Calculation 16.22 mg/dL (5.00-40.00)
== END | disposition home or self-care (01) ==
LOC: LABWHC1 07:46
PROVIDERS: ATTEND Internal Medicine Interventional Cardiology
DX: E78.2 Mixed hyperlipidemia (principal)
CPT/HCPCS: 36415; 80053; 80061